=== PATIENT | female | born 1955 | race African-American/Black ===

== ENCOUNTER 2019-01-30 07:20 | Emergency (ER) | payer OTHER ==
[~2019-01-30] VITALS: Ht 162.6 cm; Wt 83.5 kg
[~2019-01-30 07:20] MED LIST: AMLODIPINE5 M1 PO; ATENOLOL25 MG PO; COLACE100 MG PO; DETROL LA4 MG PO; HYDROCHLOROTH12.5 M2 PO; LAC30L PO; LOSARTAN POTASS25 M1 PO; NEU300 PO; NOR10T PO; OMEPRAZOLE40 M1 PO; PROVENTIL0.09 MG/A1 INH; SAVELLA50 M1 PO; TRAMADOL HCL50 MG PO; VENTOLIN H0.09 MG/A1 INH; VOLTAREN75 MG; ZOMIG5 MG PO
[2019-01-30 07:27] VITALS: Ht 162.6 cm; Wt 83.5 kg
[2019-01-30 08:23] LABS: BASOPHIL % 0.8 % (0-2); PLATELET COUNT 262 x10^3mcL (130-400); RED CELL DISTRIBUTION WIDTH 13.1 % (11.5-14.5)
[2019-01-30 08:41] LABS: CALCIUM 9.2 mg/dL (8.5-10.1); CARBON DIOXIDE 32.7 mmol/L (21-32); CREATININE SERUM 1.1 mg/dL (0.6-1.0); POTASSIUM SERUM 3.4 mmol/L (3.5-5.1)
[2019-01-30 08:45] LABS: ALBUMIN 3.7 g/dL (3.4-5.0); BILIRUBIN TOTAL 0.62 mg/dL (0.20-1.00); TOTAL PROTEIN, SERUM 7.5 g/dL (6.4-8.2)
[2019-01-30 09:29] VITALS: BP 135/87
== END 2019-01-30 09:29 | disposition home or self-care (01) ==
LOC: ED 07:20
PROVIDERS: Emergency Medicine
DX: R10.33 Periumbilical pain (principal); J45.909 Unspecified asthma, uncomplicated; I10 Essential (primary) hypertension; G43.909 Migraine, unspecified, not intractable, without status migrainosus; M79.7 Fibromyalgia; Z90.710 Acquired absence of both cervix and uterus; Z88.0 Allergy status to penicillin; Z88.1 Allergy status to other antibiotic agents; Z88.8 Allergy status to other drugs, medicaments and biological substances; Z88.5 Allergy status to narcotic agent
CPT/HCPCS: 36415; J1885; J3010

== ENCOUNTER 2019-12-27 09:17 | Emergency (ER) | payer OTHER ==
[~2019-12-27] VITALS: Ht 162.6 cm; Wt 81.6 kg
[2019-12-27 09:24] VITALS: BP 138/78; Ht 162.6 cm; Wt 81.6 kg
[2019-12-27 09:59] LABS: BASOPHIL % 0.7 % (0-2); PLATELET COUNT 260 x10^3mcL (130-400)
[2019-12-27 10:06] LABS: RED CELL DISTRIBUTION WIDTH 14.7 % (11.5-14.5)
[2019-12-27 10:17] LABS: CALCIUM 9.1 mg/dL (8.5-10.1); CARBON DIOXIDE 29.2 mmol/L (21-32); CREATININE SERUM 1.1 mg/dL (0.6-1.0); POTASSIUM SERUM 3.3 mmol/L (3.5-5.1)
== END 2019-12-27 11:00 | disposition home or self-care (01) ==
LOC: ED 09:17
PROVIDERS: Emergency Medicine
DX: J06.9 Acute upper respiratory infection, unspecified (principal); Z88.0 Allergy status to penicillin; Z88.1 Allergy status to other antibiotic agents; Z88.5 Allergy status to narcotic agent; J45.909 Unspecified asthma, uncomplicated; I10 Essential (primary) hypertension; G43.909 Migraine, unspecified, not intractable, without status migrainosus; Z90.710 Acquired absence of both cervix and uterus
CPT/HCPCS: 36415